=== PATIENT | female | born 1935 | race Caucasian/White ===

== ENCOUNTER 2016-12-17 14:58 | Emergency (ER) | payer OTHER, MEDICARE ==
[2016-12-17 15:10] VITALS: BMI 18.8
--- NOTE | 2016-12-17 15:32 | PDOC ---
Attending Attestation - Resident Resident Name: Amado Rico - ED Attending Attestation I have performed the following: I have examined & evaluated the patient, The case was reviewed & discussed with the resident, I agree w/resident's findings & plan, Exceptions are as noted - HPI HPI: 12/17/16 16:09 This is an 81-year-old female presented to emergency department with a complaint of lightheadedness. Patient states her symptoms are present for seconds and then resolved She then had lunch Since then she has felt fine No chest pain, no palpitations No shortness of breath No focal weakness No nausea, vomiting or diarrhea No numbness No changes in speech No fevers or chills No prior episodes like this - Physicial Exam PE: 12/17/16 16:11 RRR CTA No abd tenderness Lower extremity edema L>R - Medical Decision Making 12/17/16 16:14 Will check basic labs Will do EKG Will re assess 12/17/16 17:25 Laboratory Tests 12/17/16 12/17/16 16:12 16:12 WBC 7.2 Hgb 12.4 Hct 37.6 Plt Count 201 BUN 18 Creatinine 0.7 Alkaline Phosphatase 76 Troponin I < 0.02 12/17/16 17:29 Laboratory Tests 12/17/16 16:15 Urine Blood Negative Urine Nitrite Negative Ur Leukocyte Esterase Negative Pt anxious to go home Will discharge to home Discharge Disposition - Diagnosis Lightheadedness - Discharge Dispostion Disposition: HOME Condition at time of disposition: Improved Last Admission D/C Date: 08/02/97 Admit: No - Referrals Referrals: Ej Betancourt [Primary Care Provider] - - Patient Instructions Printed Discharge Instructions: DI for Dizziness-Nonvertigo Additional Instructions: Please return to the Emergency Department if you experience any worsening symptoms including chest pain, heart palpitations, or shortness of breath. Please call to follow up with your Primary care Provider to discuss your ER visit. - Post Discharge Activity Heart Score/ECG Review #1 ECG reviewed & interpreted by me at: 15:54 General ECG Interpretation: Sinus Rhythm, Normal Rate, Normal Intervals, No acute ischemic changes
--- NOTE | 2016-12-17 16:04 | PDOC ---
History of Present Illness - General Chief Complaint: Lightheaded Stated Complaint: DIZZINESS Time Seen by Provider: 12/17/16 15:18 - History of Present Illness Initial Comments: 12/17/16 16:01 Patient is a 81 year old female with a history of HTN and lower extremity edema who presents following an episode of lightheadedness. Patient reports experiencing a 2-3 second episode of lightheadedness while making lunch today that immediately resolved. She states that she sat down and ate after the episode before presenting to the ED. She reports that she was recently placed on aspirin for HTN and was worried that her blood pressure or dehydration could have contributed to her symptoms and wished to be assured that nothing serious was occuring. She reports that she currently is asymptomatic. She denies sensation of the room spinning, chest pain, palpitations, SOB, abdominal pain, or any other symptoms. Past History - Past Medical History Allergies/Adverse Reactions: Allergies Allergy/AdvReac Type Severity Reaction Status Date / Time HAYFEVER Allergy Uncoded 12/17/16 15:10 SEAFOOD Allergy Uncoded 12/17/16 15:10 Home Medications: Ambulatory Orders Aspirin [ASA -] 81 mg PO DAILY 12/17/16 Lisinopril 10 mg PO DAILY 12/17/16 Omeprazole 20 mg PO HS 12/17/16 Cancer: Yes (RT BREAST) GI Disorders: Yes (GERD) HTN: Yes - Psycho/Social/Smoking Cessation Hx Suicidal Ideation: No Smoking History: Never smoked Information on smoking cessation initiated: No Hx Alcohol Use: No Drug/Substance Use Hx: No Substance Use Type: None Review of Systems - Review of Systems Constitutional: No: Chills, Fever, Weakness HEENTM: No: Recent change in vision, Double Vision, Hearing Loss Respiratory: No: Cough, Shortness of Breath, Wheezing Cardiac (ROS): Yes: Lightheadedness. No: Chest Pain, Irregular Heart Rate, Palpitations, Syncope, Chest Tightness ABD/GI: No: Difficulty Swallowing, Nausea, Vomiting, Abdominal cramping : No: Dysuria, Frequency Neurological: No: Headache, Numbness, Paresthesia, Weakness, Unsteady Gait, Dizziness *Physical Exam - Vital Signs Last Vital Signs Temp Pulse Resp BP Pulse Ox 97.5 F L 82 18 144/66 96 12/17/16 15:08 12/17/16 15:08 12/17/16 15:08 12/17/16 15:08 12/17/16 15:08 - Physical Exam General Appearance: Yes: Nourished, Thin. No: Apparent Distress HEENT: positive: Normal Voice Respiratory/Chest: positive: Lungs Clear, Normal Breath Sounds. negative: Rales , Rhonchi, Wheezing Cardiovascular: positive: Regular Rhythm, Regular Rate. negative: Murmur, Gallop/S3, Gallop/S4 Gastrointestinal/Abdominal: positive: Normal Bowel Sounds, Soft. negative: Tender, Organomegaly, Guarding, Rebound Extremity: positive: Normal Capillary Refill, Normal Inspection, Other (Lower extremity edema L>R.). negative: Coldness, Cyanosis Integumentary: positive: Normal Color, Dry, Warm Neurologic: positive: Fully Oriented, Alert, Normal Mood/Affect, Normal Response ED Treatment Course - LABORATORY CBC & Chemistry Diagram: 12/17/16 16:12 12/17/16 16:12 Medical Decision Making - Medical Decision Making 12/17/16 16:10 Patient is an 81 year old female with a history of HTN who presents following an episode of lightheadedness. Given the patient's age and reported lightheadedness, it is reasonable to obtain an EKG, Troponin, CBC, and CMP to rule out any serious etiologies. However, given that her symptoms have resolved and the episode was only 2-3 seconds with a relatively benign physical exam, we believe that this was an isolated episode of lightheadedness. 12/17/16 16:18 Patient's ECG was read as normal. 12/17/16 17:35 Patient's laboratory results are normal. Patient likely had an isolated episode of lightheadedness. We reassured the patient and discussed return precautions with her and she voiced understanding. *DC/Admit/Observation/Transfer Diagnosis at time of Disposition: Lightheadedness - Discharge Dispostion Disposition: HOME Condition at time of disposition: Improved Admit: No - Referrals Referrals: Ej Betancourt [Primary Care Provider] - - Patient Instructions Printed Discharge Instructions: DI for Dizziness-Nonvertigo Additional Instructions: Please return to the Emergency Department if you experience any worsening symptoms including chest pain, heart palpitations, or shortness of breath. Please call to follow up with your Primary care Provider to discuss your ER visit. - Attestations Physician Attestion: 12/17/16 17:26 I, Dr. Amado Rico, attest that this document has been prepared under my direction and personally reviewed by me in its entirety. I further attest, that it accurately reflects all work, treatment, procedures and medical decision -making performed by me.
[2016-12-17 16:17] LABS: MCH 28.3 pg (25.7-33.7); MEAN CELL VOLUME 85.8 fl (80-96); MEAN PLT VOLUME 7.9 fl (7.5-11.1); PLATELET COUNT 201 K/MM3 (134-434); WHITE BLOOD COUNT 7.2 K/mm3 (4.0-10.0)
[2016-12-17 16:51] LABS: ALBUMIN 3.9 g/dl (3.4-5.0); ANION GAP 7 (8-16); BILIRUBIN,TOTAL 0.3 mg/dL (0.2-1.0); CALCIUM 9.4 mg/dL (8.5-10.1); CO2 30 mmol/L (21-32); CREATININE 0.7 mg/dL (0.55-1.02); GLUCOSE,RANDOM 114 mg/dL (74-106); SGOT/AST 23 U/L (15-37); SGPT/ALT 25 U/L (12-78); TOT PROT 6.8 g/dl (6.4-8.2)
[2016-12-17 16:53] LABS: ALK PHOS 76 U/L (45-117); TROPONIN I < 0.02 ng/ml (0.00-0.05)
[2016-12-17 17:22] LABS: URINE APPEARANCE CLEAR; URINE BILIRUBIN NEGATIVE (NEGATIVE); URINE BLOOD NEGATIVE (NEGATIVE); URINE COLOR STRAW; URINE GLUCOSE (UA) NEGATIVE (NEGATIVE); URINE KETONE NEGATIVE (NEGATIVE); URINE LEUK ESTERASE NEGATIVE (NEGATIVE); URINE NITRITE NEGATIVE (NEGATIVE); URINE PROTEIN NEGATIVE (NEGATIVE); URINE UROBILINOGEN NEGATIVE E.U./dl (0.2-1.0)
[2016-12-17 17:35] VITALS: PULSE 78; TEMP 98.4
[2016-12-17 17:47] VITALS: BP 135/65
--- NOTE | 2016-12-18 10:43 | EKG ---
Test Reason : Blood Pressure : / mmHG Vent. Rate : 079 BPM Atrial Rate : 079 BPM P-R Int : 126 ms QRS Dur : 074 ms QT Int : 360 ms P-R-T Axes : 081 058 051 degrees QTc Int : 412 ms NORMAL SINUS RHYTHM NORMAL ECG WHEN COMPARED WITH ECG OF 02-AUG-1997 08:51, NO SIGNIFICANT CHANGE WAS FOUND Confirmed by ATA GARDNER MD ([id number]) on 12/18/2016 10:43:28 AM Referred By: Confirmed By:ATA GARDNER MD
== END 2016-12-17 17:35 | disposition home or self-care (01) ==
LOC: JER 14:58
DX: R42 Dizziness and giddiness (principal); I10 Essential (primary) hypertension; K21.9 Gastro-esophageal reflux disease without esophagitis; Z85.3 Personal history of malignant neoplasm of breast
CPT/HCPCS: 36415; 80053; 81003; 84484; 85027; 93005; 93010; 99284-25